=== PATIENT | female | born 1960 | race Asian ===

== ENCOUNTER 2018-01-10 13:48 | Emergency (ER) | payer OTHER ==
[~2018-01-10] VITALS: Ht 162.6 cm; Wt 79.4 kg
[2018-01-10 13:54] VITALS: BP 154/90
--- NOTE | 2018-01-10 13:58 | NUR ---
WHEEL CHAIR ASSISTED TO BED 3, REPORT GIVEN TO LUCIO SHELTON
--- NOTE | 2018-01-10 14:15 | NUR ---
57Y/F BIB DAUGHTER WITH C/O LT ANKLE PAIN 6/10 S/P FALL LAST MONDAY NIGHT AT HOME; DENIES ALOC. PATIENT POSITIONED FOR COMFORT; HOB ELEVATED; BEDRAILS UP X1; BED DOWN. ER MD MADE AWARE OF PT STATUS.
[2018-01-10 15:32] VITALS: BP 145/89
--- NOTE | 2018-01-10 15:32 | NUR ---
Patient discharged with v/s stable. Written and verbal after care instructions given and explained. Patient verbalized understanding. Wheel Chair Assisted with to car. All questions addressed prior to discharge. Advised to follow up with PMD.
== END 2018-01-10 15:32 | disposition home or self-care (01) ==
LOC: MED 13:48
DX: S93.402A Sprain of unspecified ligament of left ankle, initial encounter (principal); X58.XXXA Exposure to other specified factors, initial encounter; Y93.89 Activity, other specified; Y92.89 Other specified places as the place of occurrence of the external cause; Y99.8 Other external cause status
CPT/HCPCS: 73610; 99284; Q0092